=== PATIENT | female | born 1945 | race Caucasian/White ===

== ENCOUNTER → 2017-01-14 | Outpatient (CLI) | payer OTHER | LOC: CIMAGING 13:35 | PROVIDERS: ATTEND Physician Assistant Surgical | DX: Z09 Encounter for follow-up examination after completed treatment for conditions other than malignant neoplasm (principal); Z98.1 Arthrodesis status | CPT/HCPCS: 72100-PO ==

== ENCOUNTER → 2017-02-27 | Outpatient (CLI) | payer OTHER | LOC: FIMAGING 09:35 | PROVIDERS: ATTEND Family Medicine | DX: Z13.820 Encounter for screening for osteoporosis (principal); E03.9 Hypothyroidism, unspecified; Z82.62 Family history of osteoporosis; Z98.1 Arthrodesis status; Z85.42 Personal history of malignant neoplasm of other parts of uterus ==

== ENCOUNTER → 2017-06-22 | Outpatient (CLI) | payer OTHER | LOC: FIMAGING 13:58 | PROVIDERS: ATTEND Physician Assistant Surgical | DX: M43.26 Fusion of spine, lumbar region (principal) ==

== ENCOUNTER 2017-07-11 17:45 | Emergency (ER) | payer OTHER ==
[2017-07-11 18:14] VITALS: RESP 17; TEMP 98.2; O2SAT 94
--- NOTE | 2017-07-11 18:31 | EDPHY ---
H & P Smoking Status: Never smoked Time Seen by Provider: 07/11/17 18:29 HPI/ROS: Chief complaint. Abdominal pain HPI. 71-year-old female presents emergency department with right upper quadrant abdominal pain that radiates to her right shoulder. Began at 1:00 p.m. after drinking espitia for. She has had similar symptoms previously. She has not had nausea vomiting or diarrhea. She recently finished clindamycin antibiotic days ago because of facial infection. She has no fever, chest pain, shortness of breath. Pain is not worse with movement or eating. Apparently this has been going off and on for years ROS Constitutional. no fever/chills, no weakness Eyes. no problems with vision ENT. no sore throat, no nasal drainage Cardiovascular. no chest pain Respiratory. no shortness of breath, no cough Abdominal. Right upper quadrant abdominal pain without nausea vomiting or diarrhea . no problems urinating MS. no calf pain/swelling, no neck/back pain, no joint pain Skin. no rash Lymph. no swollen glands Neuro. no headache, no dizziness, no difficulty walking or with speech (Rich Delaney) Past Medical/Surgical History: Past medical history significant for chronic back pain, concussion, chronic headaches, appendectomy, hypertension, hyponatremia, anxiety, depression, hypothyroid, hysterectomy, vaginal cancer, Graves disease (Rich Delaney) Social History: , nonsmoker, no alcohol (Rich Delaney) Physical Exam: General Appearance: Alert well-developed female mild distress vital signs are stable Eyes: Pupils equal and round no pallor or injection. ENT, Mouth: Mucous membranes are moist. Respiratory: There are no retractions, lungs are clear to auscultation. Cardiovascular: Regular rate and rhythm. Gastrointestinal: Abdomen is soft with tenderness in the right upper quadrant. No masses. Normal bowel sounds Neurological: Awake and alert, sensory and motor exams grossly normal. Skin: Warm and dry, no rashes. Musculoskeletal: Neck is supple nontender. Extremities symmetrical, full range of motion. Psychiatric: Patient is oriented X 3, there is no agitation. (Rich Delaney) Constitutional: Initial Vital Signs Temperature (C) 36.8 C 07/11/17 18:10 Heart Rate 70 07/11/17 18:10 Respiratory Rate 17 07/11/17 18:10 Blood Pressure 152/107 H 09/28/17 18:10 O2 Sat (%) 94 07/11/17 18:10 O2 Delivery Mode Room Air Allergies/Adverse Reactions: Sulfa (Sulfonamide Antibiotics) Allergy (Severe, Verified 07/11/17 18:08) Other-Enter Comments adhesives topical Allergy (Uncoded 10/20/14 16:35) Home Medications: Medication Instructions Recorded Allopurinol [Allopurinol 300 MG 300 mg PO DAILY 10/20/14 (RX)] Budesonide [Budesonide EC] 9 mg PO DAILY PRN 10/20/14 ESTRADIOL ACETATE [FEMRING] 1 each VG Q90D 10/20/14 Levothyroxine [Synthroid 112 mcg 112 mcg PO DAILY06 10/20/14 (*)] Lidocaine 5% [Lidoderm 5% Patch 1 ea TD Q3D PRN 10/20/14 (*)] chlorproMAZINE HCL [Thorazine (*)] 25 mg PO HS PRN 10/20/14 Escitalopram Oxalate [Lexapro] 20 mg PO DAILY 06/20/16 Herbals/Supplements -Info Only 1 ea PO DAILY 06/20/16 LORazepam [Ativan (*)] 1 mg PO BID PRN 06/20/16 Lisinopril [Zestril 20 mg (*)] 20 mg PO BID 06/20/16 Metoprolol Tartrate [Lopressor 50 50 mg PO DAILY 06/20/16 mg (*)] oxyCODONE HCL/ACETAMINOPHEN 1 each PO QID PRN 06/20/16 [Percocet 10-325 mg Tablet] traZODone [traZODone 150MG (*)] 150 mg PO HS PRN 06/20/16 Niacin [Niacin 500 mg (*)] 500 mg PO DAILY 06/22/16 Acetaminophen [Tylenol 325mg (*)] 325 - 650 mg PO Q4 PRN #0 tab 06/24/16 Diazepam [Valium 5 MG (*)] 2 mg PO TID PRN #60 tab 06/24/16 Methocarbamol [Robaxin 750 mg (*)] 750 mg PO QID PRN #60 tab 06/24/16 oxyCODONE IR [Oxycodone Ir (*)] 5 - 10 mg PO Q4HRS PRN #60 tab 06/24/16 Medical Decision Making - Diagnostics Imaging Results: Upright abdomen one view shows no evidence of free air or air-fluid levels. Moderate constipation (Rich Delaney) Procedures: IV normal saline. Fentanyl for pain (Rich Delaney) ED Course/Re-evaluation: Re-evaluation at 8:30 a.m. patient is stable in appears well. Ultrasound is pending (Rich Delaney) 10:00 p.m.-this patient was signed over to me at shift change to check the ultrasound report. Ultrasound is normal, the plan is to discharge the patient home with outpatient follow-up. 10:10 p.m.-ultrasound right upper quadrant is normal, read by Dr. Jonnie Vigil. Results discussed with the patient. I was not otherwise involved in the care of this patient. Abdominal pain precautions given. (Danica Vail) Differential Diagnosis: I considered pancreatitis as well as cholecystitis and gallbladder disease. I considered hepatitis. Findings so far consistent with constipation. Patient has had these symptoms previously and so far workup is not shown cause for her pain (Rich Delaney) Care Turn Over: Dr. Vail at 2130 with ultrasound pending (Rich Delaney) - Data Points Laboratory Results: Laboratory Results 07/11/17 18:30 07/11/17 18:30 Medications Given: Discontinued Medications Fentanyl (Sublimaze) 100 mcg IVP EDNOW ONE Stop: 07/11/17 19:02 Last Admin: 07/11/17 19:16 Dose: 100 mcg Fentanyl (Sublimaze) 100 mcg IVP EDNOW ONE Stop: 07/11/17 21:12 Last Admin: 07/11/17 21:13 Dose: 100 mcg Sodium Chloride (Ns) 1,000 mls @ 0 mls/hr IV EDNOW ONE; Wide Open PRN Reason: Protocol Stop: 07/11/17 19:02 Last Admin: 07/11/17 19:16 Dose: 1,000 mls Departure - Departure Disposition: Home, Routine, Self-Care Clinical Impression: Abdominal pain Condition: Good Instructions: Abdominal Pain (ED) Additional Instructions: X-ray shows some constipation. Increased fluids including fruit and prune juice. May use ulysses Colace or laxatives from the grocery store. Return for worsening pain, fever, vomiting. Recheck tomorrow by your regular physician Referrals: Kilo Villagomez, DO [Primary Care Provider] - 1 day without fail
[2017-07-11] MEDS ORDERED: fentaNYL 100 MCG/2 ML INJ IVP ONE ×2 (19:01→21:11)
[2017-07-11] MEDS ORDERED: NS 1,000 ML IV ONE (19:01)
[2017-07-11 19:09] LABS: % IMMATURE GRANULYOCYTES 0.6 % (0.0-1.1); ABSOLUTE IMMATURE GRANULOCYTES 0.07 10^3/uL (0.00-0.10); ADD DIFF? NO; ADD MORPH? NO; ADD SCAN? NO; ATYPICAL LYMPHOCYTE FLAG 0 (0-99); FRAGMENT RBC FLAG 0 (0-99); HEMATOCRIT 43.4 % (38.0-47.0); HEMOGLOBIN 14.9 g/dL (12.6-16.3); LEFT SHIFT FLG 0 (0-99); LIPEMIA HEMOLYSIS FLAG 90 (0-99); MEAN CELL HEMOGLOBIN 33.9 pg (27.9-34.1); MEAN CELL HEMOGLOBIN CONCENTR. 34.3 g/dL (32.4-36.7); MEAN CELL VOLUME 98.6 fL (81.5-99.8); MEAN PLATELET VOLUME 11.3 fL (8.7-11.7); PLATELET CLUMPS FLAG 0 (0-99); PLATELET COUNT 201 10^3/uL (150-400); RED CELL DISTRIBUTION WIDTH 13.2 % (11.5-15.2)
[2017-07-11 19:21] LABS: ALANINE AMINOTRANSFERASE 32 IU/L (9-52); ALBUMIN 4.7 g/dL (3.5-5.0); ALKALINE PHOSPHATASE 67 IU/L (38-126); ANION GAP 12 mEq/L (8-16); ASPARTATE AMINOTRANSFERASE 33 IU/L (14-46); BILIRUBIN,TOTAL 0.8 mg/dL (0.1-1.4); BILIRUBIN-CONJUGATED 0.5 mg/dL (0.0-0.5); BILIRUBIN-UNCONJUGATED 0.3 mg/dL (0.0-1.1); CALCIUM 9.6 mg/dL (8.5-10.4); CARBON DIOXIDE 25 mEq/l (22-31); CHLORIDE 100 mEq/L (97-110); GLOMERULAR FILTRATION RATE 55; GLUCOSE 100 mg/dL (70-100); POTASSIUM 4.7 mEq/L (3.5-5.2); SODIUM 137 mEq/L (134-144); TOTAL PROTEIN 8.1 g/dL (6.3-8.2)
[2017-07-11] MEDS ORDERED: fentaNYL 100 MCG/2 ML INJ ONE (21:09)
[2017-07-11 21:59] VITALS: BP 182/92; PULSE 62
== END 2017-07-11 22:23 | disposition home or self-care (01) ==
DX: R10.11 Right upper quadrant pain (principal); E86.9 Volume depletion, unspecified; I10 Essential (primary) hypertension; Z85.44 Personal history of malignant neoplasm of other female genital organs; Z90.49 Acquired absence of other specified parts of digestive tract; Z90.710 Acquired absence of both cervix and uterus
CPT/HCPCS: 74000; 76705; 96374; 96376; 99285; J3010

== ENCOUNTER → 2017-08-20 | Outpatient (CLI) | payer OTHER | LOC: FIMAGING 11:18 | PROVIDERS: ATTEND Family Medicine | DX: Z12.31 Encounter for screening mammogram for malignant neoplasm of breast (principal) | CPT/HCPCS: G0202 ==

== ENCOUNTER → 2017-08-22 | Outpatient (CLI) | payer OTHER | LOC: CIMAGING 13:21 | PROVIDERS: ATTEND Family Medicine | DX: J32.2 Chronic ethmoidal sinusitis (principal) | CPT/HCPCS: 70486-PO ==

== ENCOUNTER 2018-06-26 18:38 | Inpatient (IN) | payer OTHER ==
--- NOTE | 2018-06-26 19:13 | EDPHY ---
H & P Stated Complaint: back pain urinary and fecal incontinence/had myelogram needs surgery Time Seen by Provider: 06/26/18 18:52 HPI/ROS: CHIEF COMPLAINT: Severe back pain, bowel and bladder incontinence HISTORY OF PRESENT ILLNESS: 72-year-old female presents with critical spinal stenosis. Multiple spinal surgeries in the past, including L1/L2 fusion. Ongoing severe pain in the low back for several months. On oxycontin and oxycodone. Several months ago she developed urinary incontinence and 3 weeks ago she developed bowel incontinence. Associated with bilateral lower extremity weakness for several weeks. CT myelogram today revealed cessation of contrast at T12-L1 junction, consistent with severe spinal stenosis. She was sent to the emergency department for admission for surgery. REVIEW OF SYSTEMS: complete 10 point ROS reviewed and is negative except at noted in the HPI - Personal History Current Tetanus Diphtheria and Acellular Pertussis (TDAP): Unsure Tetanus Vaccine Date: 2004 - Medical/Surgical History Hx Asthma: No Hx Chronic Respiratory Disease: No Hx Diabetes: No Hx Cardiac Disease: No Hx Renal Disease: No Hx Cirrhosis: No Hx Alcoholism: No Hx HIV/AIDS: No Hx Splenectomy or Spleen Trauma: No Other PMH: Chronic Back pain, concussion, Headaches, appy, HTN, hyponatremia, anxiety, depression, hypothyroid, total hysterectomy, vaginal cancer, Graves disease,. Pt states had a stroke but when she went to ER they did not diagnose her w a stroke and imaging did not show evidence of a stroke she says. C/o issues on Right side - Social History Smoking Status: Never smoked Alcohol Use: Sober Additional Social History: - Physical Exam Exam: General Appearance: Alert, pleasant Eyes: Pupils equal and round, no conjunctival pallor ENT, Mouth: Mucous membranes moist Neck: Normal inspection Respiratory: Lungs are clear to auscultation Cardiovascular: Regular rate and rhythm Gastrointestinal: Abdomen is soft and nontender Neurological: A&O, motor 5-/5 RLE hip flexion and foot dorsiflexion, sensation intact to light touch Skin: Warm and dry Extremities: Nontender, no pedal edema Psychiatric: Mood and affect normal Constitutional: Initial Vital Signs Temperature (C) 37 C 06/26/18 18:41 Heart Rate 64 06/26/18 18:41 Respiratory Rate 17 06/26/18 18:41 Blood Pressure 117/80 06/26/18 18:41 O2 Sat (%) 96 06/26/18 18:41 O2 Delivery Mode Room Air Allergies/Adverse Reactions: Sulfa (Sulfonamide Antibiotics) Allergy (Severe, Verified 06/26/18 18:40) Other-Enter Comments adhesives topical Allergy (Uncoded 10/20/14 16:35) Home Medications: Medication Instructions Recorded Allopurinol [Allopurinol 300 MG 300 mg PO DAILY 10/20/14 (RX)] Budesonide [Budesonide EC] 9 mg PO DAILY PRN 10/20/14 ESTRADIOL ACETATE [FEMRING] 1 each VG Q90D 10/20/14 Levothyroxine [Synthroid 112 mcg 112 mcg PO DAILY06 10/20/14 (*)] chlorproMAZINE HCL [Thorazine (*)] 25 mg PO HS PRN 10/20/14 Escitalopram Oxalate [Lexapro] 20 mg PO DAILY 06/20/16 Herbals/Supplements -Info Only 1 ea PO DAILY 06/20/16 LORazepam [Ativan (*)] 1 mg PO BID@,17 06/20/16 Lisinopril [Zestril 20 mg (*)] 20 mg PO BID@05,17 06/20/16 Escitalopram Oxalate [Lexapro] 10 mg PO HS 06/26/18 Fluticasone Nasal [Flonase Nasal 2 sprays NASAL DAILY 06/26/18 [place]] Melatonin 10 mg PO HS 06/26/18 Methocarbamol [Robaxin 500 mg (*)] 500 mg PO BID@,17 PRN 06/26/18 Metoprolol Succinate 25 mg PO DAILY@17 06/26/18 Metoprolol Succinate 50 mg PO DAILY 06/26/18 Minoxidil [Minoxidil 2.5 mg (*)] 2.5 mg PO BID@05,17 06/26/18 oxyCODONE HCL [Oxycontin] 20 mg PO BID@05,17 06/26/18 tiZANidine HCL [Zanaflex] 2 mg PO QID 06/26/18 traZODone [traZODone 150MG (*)] 75 mg PO HS PRN 06/26/18 Acetaminophen [Tylenol ES 500 mg 1,000 mg PO Q8H tab 06/29/18 (*)] Diazepam [Valium] 5 mg IVP Q6HRS PRN syr 06/29/18 Polyethylene Glycol 3350 [Miralax 17 gm PO TID pkt 06/29/18 17 gm (*)] Sennosides/Docusate Sodium 1 - 2 tab PO BID tab 06/29/18 [Senokot-S] oxyCODONE IR [Oxycodone Ir (*)] 10 mg PO Q4HRS PRN tab 06/29/18 Medical Decision Making ED Course/Re-evaluation: This patient presents with critical spinal stenosis, diagnosed on myelogram today. Patient declines pain medications. Dr. Samson was consulted and will admit the patient. Plan for surgical repair 10:00am tomorrow. Stable throughout her emergency department stay. Differential Diagnosis: Differential diagnosis for back pain includes muscular pain, herniated disc, epidural abscess, discitis, spine fracture, intra-abdominal causes and urinary tract infection. - Data Points Laboratory Results: Laboratory Results 06/26/18 19:02 06/26/18 19:02 Medications Given: Discontinued Medications Acetaminophen (Tylenol) 1,000 mg PO ONCALL ONE Stop: 06/27/18 06:01 Last Admin: 06/27/18 17:47 Dose: Not Given Acetaminophen (Tylenol) 1,000 mg PO Q8H HANG Stop: 12/24/18 15:59 Last Admin: 06/29/18 09:35 Dose: 1,000 mg Allopurinol (Allopurinol) 300 mg PO DAILY HANG Stop: 12/24/18 08:59 Last Admin: 06/29/18 09:35 Dose: 300 mg Bacitracin (Bacitracin Syringe) Confirm Administered Dose 150,000 units IRR .STK -MED ONE Stop: 06/27/18 11:45 Last Admin: 06/27/18 12:30 Dose: 150,000 units Bupivacaine HCl (Sensorcaine 0.25% Sdv) Confirm Administered Dose 60 ml .ROUTE .STK-MED ONE Stop: 06/27/18 11:44 Last Admin: 06/27/18 12:30 Dose: 60 ml Chlorhexidine Gluconate (Hibiclens) Confirm Administered Dose 1 btl TP .STK-MED ONE Stop: 06/27/18 11:44 Last Admin: 06/27/18 12:30 Dose: 20 ml Chlorpromazine HCl (Thorazine) 50 mg PO HS HANG Stop: 12/23/18 22:34 Last Admin: 06/28/18 20:24 Dose: 50 mg Diazepam (Valium) 2.5 - 5 mg IVP Q5M PRN PRN Reason: PACU, Muscle Spasms Stop: 06/27/18 16:30 Last Admin: 06/27/18 16:24 Dose: 5 mg Enoxaparin Sodium (Lovenox) 40 mg SC DAILY [facility] Stop: 12/25/18 08:59 Last Admin: 06/29/18 09:36 Dose: 40 mg Epinephrine HCl (Epinephrine) Confirm Administered Dose 1 mg .ROUTE .STK-MED [facility] Stop: 06/27/18 11:44 Last Admin: 06/27/18 12:30 Dose: 1 mg Escitalopram Oxalate (Lexapro) 10 mg PO HS [facility] Stop: 12/24/18 20:59 Last Admin: 06/28/18 20:23 Dose: 10 mg Escitalopram Oxalate (Lexapro) 20 mg PO DAILY [facility] Stop: 12/24/18 08:59 Last Admin: 06/29/18 09:35 Dose: 20 mg Famotidine (Pepcid) 20 mg PO BID [facility] Stop: 12/24/18 20:59 Last Admin: 06/29/18 09:36 Dose: 20 mg Fentanyl (Sublimaze) 25 - 100 mcg IVP Q5M PRN PRN Reason: PACU, IMMEDIATE Pain control Stop: 06/27/18 16:30 Last Admin: 06/27/18 16:14 Dose: 100 mcg Fluticasone Propionate (Flonase Nasal [place]) 2 sprays [place] DAILY [facility] Stop: 12/24/18 08:59 Last Admin: 06/29/18 11:30 Dose: Not Given Gabapentin (Neurontin) 900 mg PO ONCALL ONE Stop: 06/27/18 06:01 Last Admin: 06/27/18 09:00 Dose: Not Given Gabapentin (Neurontin) 900 mg PO Q8HRS [facility] Stop: 12/24/18 21:59 Last Admin: 06/29/18 05:25 Dose: Not Given Cefazolin Sodium/Dextrose (Ancef 2 Gm) 100 mls @ 200 mls/hr IV ONCALL ONE PRN Reason: Protocol Stop: 06/27/18 06:29 Last Admin: 06/27/18 13:00 Dose: 100 mls Fentanyl 50 mcg/ Syringe 1 mls @ 0 mls/hr IT ONCALL ONE PRN Reason: As Directed Stop: 06/27/18 06:01 Last Admin: 06/27/18 15:33 Dose: 1 mls Morphine Sulfate 0.2 mg/ (Syringe) 0.4 mls @ 0 mls/hr IT ONCALL ONE PRN Reason: As Directed Stop: 06/27/18 06:01 Last Admin: 06/27/18 15:33 Dose: 0.4 mls Tranexamic Acid 1,000 mg/ (Sodium Chloride) 110 mls @ 660 mls/hr IV ONCALL ONE Stop: 06/27/18 06:09 Last Admin: 06/27/18 12:57 Dose: 110 mls Sodium Chloride (Ns) 1,000 mls @ 100 mls/hr IV CONT HANG Stop: 12/23/18 22:34 Last Admin: 06/27/18 17:26 Dose: 1,000 mls Lactated Ringer's (Lr) 1,000 mls @ 0 mls/hr IV ONCE ONE PRN Reason: As Directed Stop: 06/27/18 10:19 Last Admin: 06/27/18 10:32 Dose: 1,000 mls Cefazolin Sodium/Dextrose (Ancef 2 Gm) 100 mls @ 200 mls/hr IV Q8H [facility] Stop: 06/28/18 05:29 Last Admin: 06/28/18 04:37 Dose: 100 mls Levothyroxine Sodium (Synthroid) 112 mcg PO DAILY06 [facility] Stop: 12/25/18 05:59 Last Admin: 06/29/18 05:06 Dose: 112 mcg Lisinopril (Zestril) 20 mg PO BID@17 [facility] Stop: 12/24/18 16:59 Last Admin: 06/29/18 05:06 Dose: 20 mg Lorazepam (Ativan) 1 mg PO BID@17 [facility] Stop: 12/24/18 16:59 Last Admin: 06/29/18 05:07 Dose: 1 mg Methocarbamol (Robaxin) 500 mg PO BID@,17 PRN PRN Reason: Spasms, Use 2nd Stop: 12/24/18 16:59 Last Admin: 06/28/18 14:29 Dose: 500 mg Metoprolol Succinate (Toprol Xl) 25 mg PO DAILY@17 [facility] Stop: 12/24/18 16:59 Last Admin: 06/28/18 18:34 Dose: 25 mg Metoprolol Succinate (Toprol Xl) 50 mg PO DAILY [facility] Stop: 12/24/18 08:59 Last Admin: 06/29/18 09:36 Dose: 50 mg Midazolam HCl (Versed) 2 mg IVP ONCALL ONE Stop: 06/27/18 11:31 Last Admin: 06/27/18 12:09 Dose: 2 mg Minoxidil (Minoxidil) 2.5 mg PO BID@ [facility] Stop: 12/24/18 16:59 Last Admin: 06/29/18 05:06 Dose: 2.5 mg Miscellaneous Medication (Melatonin 5mg) 10 mg PO HS [facility] Stop: 12/23/18 23:29 Last Admin: 06/28/18 20:22 Dose: 2 tab Morphine Sulfate (Morphine) 2 mg IVP Q1HR PRN PRN Reason: Pain, Severe Unable to Take PO Stop: 07/06/18 19:25 Last Admin: 06/27/18 21:16 Dose: 2 mg Oxycodone HCl (Oxycodone Ir) 10 mg PO Q4HRS PRN PRN Reason: Pain, Severe Able to Take PO Stop: 07/06/18 19:40 Last Admin: 06/29/18 09:34 Dose: 10 mg Oxycodone HCl (Oxycontin) 20 mg PO BID@ [facility] Stop: 07/07/18 16:59 Last Admin: 06/29/18 05:06 Dose: 20 mg Polyethylene Glycol (Miralax) 17 gm PO TID [facility] Stop: 12/24/18 21:59 Last Admin: 06/29/18 09:37 Dose: Not Given Senna/Docusate Sodium (Senokot-S) 1 - 2 tab PO BID HANG PRN Reason: Protocol Stop: 12/24/18 20:59 Last Admin: 06/29/18 09:37 Dose: Not Given Thrombin (Thrombin-Jmi) Confirm Administered Dose 20,000 unit TP .STK-MED ONE Stop: 06/27/18 11:44 Last Admin: 06/27/18 12:30 Dose: 20,000 unit Tizanidine HCl (Zanaflex) 2 mg PO QID [facility] Stop: 12/24/18 11:59 Last Admin: 06/29/18 11:55 Dose: 2 mg Trazodone HCl (Trazodone) 75 mg PO HS HANG Stop: 12/23/18 22:34 Last Admin: 06/26/18 23:24 Dose: 75 mg Trazodone HCl (Trazodone) 75 mg PO HS PRN PRN Reason: Sleep/Insomnia Stop: 12/24/18 07:13 Last Admin: 06/28/18 20:23 Dose: 75 mg Departure - Departure Disposition: [facility] Clinical Impression: Spinal stenosis Qualifiers: Spinal region: thoracolumbar Qualified Code(s): M48.05 - Spinal stenosis, thoracolumbar region Condition: Good
[2018-06-26 19:25] LABS: INR 0.97 (0.83-1.16); PROTIME(PATIENT) 13.1 SEC (12.0-15.0)
[2018-06-26] MEDS ORDERED: DIAZEPAM 5 MG/ML 1 ML SYR IVP PRN (19:41)
[2018-06-26] MEDS ORDERED: ONDANSETRON 4 MG/2 ML VIAL IVP PRN (19:42)
[2018-06-26] MEDS ORDERED: diphenhydrAMINE 25 MG CAP PO PRN (19:42)
[2018-06-26 20:13] LABS: PLATELET COUNT 183 10^3/uL (150-400)
[2018-06-26] MEDS ORDERED: MELATONIN 3 MG TAB PO SCH (22:35)
[2018-06-26] MEDS ORDERED: traZODone 50 MG TAB PO SCH (22:35)
[2018-06-26] MEDS: chlorproMAZINE HCL 25 MG TAB PO SCH (23:20)
[2018-06-27] MEDS: NS 1,000 ML IV SCH ×2 (00:08→17:26)
[2018-06-27] MEDS ORDERED: morphINE PF 0.2 MG in SYRINGE INTRATHECAL 1 SYR IT ONE (06:00)
[2018-06-27] MEDS ORDERED: GABAPENTIN 300 MG CAP PO ONE (06:00)
[2018-06-27] MEDS ORDERED: ceFAZolin 2 GM/DEXTROSE 100 ML IV ONE (06:00)
[2018-06-27] MEDS ORDERED: TRANEXAMIC ACID 1,000 MG in NS 100 ML IV ONE (06:00)
[2018-06-27] MEDS ORDERED: ACETAMINOPHEN 500 MG TAB PO ONE (06:00)
[2018-06-27] MEDS ORDERED: fentaNYL 50 MCG in SYRINGE INTRATHECAL 1 SYR IT ONE (06:00)
[2018-06-27] MEDS ORDERED: chlorproMAZINE HCL 25 MG TAB PO PRN (07:14)
[2018-06-27] MEDS ORDERED: BUDESONIDE 3 MG EC CAP PO PRN (07:14)
[2018-06-27] MEDS ORDERED: NON-FORMULARY NEW DRUG (Oxycodone Hcl/Acetaminophen [Percocet 10-325 Mg Tablet] 1 EACH) PO PRN (07:14)
[2018-06-27] MEDS ORDERED: oxyCODONE IR 5 MG TAB PO PRN ×2 (07:30→15:30)
[2018-06-27] MEDS ORDERED: OXYCODONE/APAP 5/325 TAB PO PRN (07:30)
--- NOTE | 2018-06-27 07:47 | SOAPPROG ---
SOAP Progress Note Assessment/Plan: Assessment: 72 yo with L1-S1 fusion over multiple surgeries by Dr. Hardy and thoracic Spinal cord stimulator placed by Dr. Irene several years ago who presents with 2 days of bowel/bladder incontinence and worsening back pain. CT myelogram of T/L spine shows critical spinal stenosis at T12/L1 above her fusion. See dictated H/P for further details Plan: NPO TO OR this AM for L1/2 hardware removal and T12/L1 TLIF with reinstrumentation with Dr. Hardy Hospitalist consult 06/27/18 07:44 06/27/18 07:47 Subjective: awake, alert, lying in bed. Reports ongoing bowel/bladder incontinence Legs feel OK but she feels unsteady on her feet. Denies radicular leg pain or focal leg weakness Complains of back pain. Objective: Vital Signs Temp Pulse Resp BP Pulse Ox 36.4 C 72 16 107/66 92 06/27/18 04:00 06/27/18 04:00 06/27/18 04:00 06/27/18 04:00 06/27/18 04:00 Laboratory Results 06/26/18 19:56 PT 13.1 SEC (12.0-15.0) 06/26/18 19:02 INR 0.97 (0.83-1.16) 06/26/18 19:02 Neuro; 5/5 bilateral LE, sens +LT Incontinent of bowel and bladder ambulatory ICD10 Worksheet Patient Problems: Problems Problem Status Onset Spinal stenosis Acute S/P lumbar spinal fusion Acute
--- NOTE | 2018-06-27 08:26 | GHP ---
DATE OF ADMISSION: 06/26/2018 CHIEF COMPLAINT: Loss of bowel and bladder control, and back pain. HISTORY OF PRESENT ILLNESS: The patient is a 72-year-old female, known to our practice, who has unde rgone multiple lumbar surgeries including an L1 to S1 fusion over multiple surgical procedures. She also has an indwelling thoracic spinal cord stimulator, which was placed by Dr. Irene. The previous fusions were performed by Dr. Hardy. The patient is 2 years out from undergoing an L2-3 angelina dware removal with an L1-2 TLIF on 06/22/2016. She states that over the past 2 years she has had gra dually worsening urinary leakage and recently was having more thoracic back pain since November. The patient was ordered to undergo a thoracolumbar CT myelogram for further evaluation of her so urce of her pain and symptoms. She cannot undergo an MRI due to the indwelling thoracic spinal cord stimulator. Yesterday, the patient completed her myelogram and I was contacted by Dr. Ann Marie Restrepo from [facility], who reported the patient has severe/critical spinal stenosis at the T12-L1 level, above her current fusion. The patient was immediately contacted at home and instructed to proceed to the [facility] department due to these findings. The patient stated on the phone that 2 days ago she lost con trol of both bowel and bladder but felt that it was worsening over the past but it had been progressi vely worsening prior to heather loss of control. She is not reporting any leg pain but does feel like her legs are generally unsteady and do not hold her up confidently and she walks slowly. She does villalobos ve chronic right-sided hip and leg weakness from a prior hip surgery. She also reports pain in her b ilateral arms and shoulders as well as some neck discomfort. ALLERGIES: Sulfa and topical adhesives. CURRENT MEDICATIONS: 1. Lisinopril 40 mg daily. 2. Levothyroxine 112 mcg daily. 3. Escitalopram 40 mg daily. 4. Chlorpromazine 50 mg q.h.s. 5. Lorazepam 1-2 mg as needed for anxiety. 6. Femring 0.1 mg per day. 7. Minoxidil 2.5 mg 2 tabs twice daily. 8. Metoprolol 50 mg tablet, 1.5 tablets daily. 9. Allopurinol 300 mg daily. 10. Niacinamide 500 mg daily. 11. Percocet 10/325 three tablets daily p.r.n. pain. 12. Hydrocodone 40 mg 2 tablets daily. 13. Methocarbamol 500 mg q.6 hours p.r.n. 14. Fluticasone 50 mcg 2 sprays nasal daily. PHYSICAL EXAM: GENERAL: Pleasant, healthy-appearing 72-year-old female in no apparent distress. HE AD, EYES, EARS, NOSE, THROAT: Within normal limits. EXTREMITIES: Within normal limits, with normal sensation in her chest, abdomen and legs bilaterally. She has 5/5 strength in all muscle groups of bilateral lower extremities to individual muscle strength testing. She has 1+/4 deep tendon reflexes in the bilateral upper and lower extremities in biceps, brachioradialis and patellar tendons with no Ajit's and no clonus. Strength is equal and symmetric in the bilateral upper extremities in all muscle groups with normal s ensation in the arms. The patient is incontinent of bowel and bladder and states she has no sensation of bladder function o r bowel movements. PAST MEDICAL HISTORY: Chronic back pain, concussion, headaches, hypertension, hyponatremia, anxiety, depression, hypothyroid, Graves disease, vaginal cancer, collagenous colitis with chronic loose stoo ls for 6 years. PAST SURGICAL HISTORY: Appendectomy, hysterectomy, L1 to S1 fusion. DATA REVIEW: Lab results: White blood cell count 9.06, hemoglobin 13.2, hematocrit 38.1, platelets are 183,000. PT is 13.1, INR 0.97, PTT 22.2. Sodium is 138, potassium 3.9, chloride 102, carbon demario xide 26, BUN 26, creatinine 0.9, glucose 105, calcium 9.4. Estimated GFR is greater than 60. CT myelogram performed on 06/26/2018, demonstrates critical spinal stenosis at the T12-L1 level just above the fused level, caused by a combination of posterior ligamentum flavum hypertrophy, epidural s car, and ventral broad-based disk bulge and osteophyte formation. The spinal nerve roots below this level are curvilinear, consistent with critical spinal stenosis. This level correlates to where the conus terminates. Right posterolateral soft tissue density medial to the facet joint in the epidural space at T11-12 with specks of air is noted on the radiology report. This may represent facet ligam entum hypertrophy, with air induced from the facet joint or postoperative epidural scar. This is cau sing, at this point, mild posterior spinal canal stenosis. IMPRESSION: This is a 72-year-old female with L1 to S1 fusion performed by Dr. Hardy over mu ltiple spinal surgeries, and a thoracic spinal cord stimulator placed by Dr. Irene. She reports pro gressively worsening severe back pain and now presents with heather bowel and bladder incontinence; how ever, the patient states that she has had urinary leakage over the past 2 years and has chronic loose stools for 6 years. In association with her heather bowel and bladder incontinence, she has now also generalized weakness in bilateral lower extremities without radicular leg pain. PLAN: All the above issues were discussed with the patient in detail with her present and di scussed with Dr. Hardy. At this time, the patient is a candidate for hardware removal at L1- 2, followed by T12-L1 transforaminal lumbar interbody fusion with re-instrumentation today. Risks an d benefits of the surgical procedure were discussed with the patient and she did complete consent for ms. She does understand that the purpose of surgery is to prevent further progression of symptoms an d that she may not regain full bowel or bladder control. The patient conveyed understanding of all t his information and agrees to proceed with surgery. /[id number]/MODL
[2018-06-27] MEDS: ESCITALOPRAM OXALATE 10 MG TAB PO SCH ×2 (09:00→20:17)
[2018-06-27] MEDS: ALLOPURINOL 300 MG TAB PO SCH (09:00)
[2018-06-27] MEDS: METOPROLOL SUCCINATE XR 50 MG TAB PO SCH ×2 (09:00→18:04)
[2018-06-27] MEDS: FLUTICASONE NASAL 120 SPRAYS/16 GM MDI EACHNARE SCH (09:00)
--- NOTE | 2018-06-27 09:30 | ASMTCMCOM ---
CM Note CM Note Notes: CM reviewed chart for D/C planning. Pt is a 72 y/o female who has a hx of multiple lumbar surgeries. Over the past 2 years she has had increased urinary leakage. 2 days ago she lost control of both bowel and bladder. Legs are generally unsteady and do not hold her up confidently. Walks slowly. CT myelogram demonstrates critical spinal stenosis at the T12-L1 level. Surgery has been agreed to. Purpose is to prevent progression. She may not gain full control of bladder/bowel. OT ordered. is Tae, . CM will follow. D/C Plan: TBD Date Signed: 06/27/2018 09:29 AM Electronically Signed By:Yvonne Fierro
[2018-06-27] MEDS ORDERED: LR 1,000 ML IV ONE (10:18)
[2018-06-27] MEDS ORDERED: MIDAZOLAM 2 MG/2 ML VIAL IVP ONE (11:30)
--- NOTE | 2018-06-27 11:30 | PDANEPAE ---
ANE History of Present Illness t10-l1 tlif ANE Past Medical History - Cardiovascular History Hx Hypertension: Yes Hx Arrhythmias: No Hx Chest Pain: No Hx Coronary Artery / Peripheral Vascular Disease: No Hx CHF / Valvular Disease: No Hx Palpitations: No Cardiovascular History Comment: well controlled BP - Pulmonary History Hx COPD: No Hx Asthma/Reactive Airway Disease: No Hx Recent Upper Respiratory Infection: No Hx Oxygen in Use at Home: No Hx Sleep Apnea: No Sleep Apnea Screening Result - Last Documented: Negative - Neurologic History Hx Cerebrovascular Accident: No Hx Seizures: No Hx Dementia: No Neurologic History Comment: leg weakness. - Endocrine History Hx Diabetes: No Endocrine History Comment: Graves disease, hypothyroid. - Renal History Hx Renal Disorders: No Renal History Comment: 04/26-bladder inf. - Liver History Hx Hepatic Disorders: Yes Hepatic History Comment: spot on liver. 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 - Congenital Disorder History Hx Congenital Disorders: No - GI History Hx Gastrointestinal Disorders: Yes Gastrointestinal History Comment: Collagenous colitis-meds. - Other Health History Other Health History: Graves disease with eye involvement. Skin rashes with adhesives. Osteoarthritis. 3 missing teeth with dental implants. Chipped front teeth. Bruise easily. - Chronic Pain History Chronic Pain: Yes - Surgical History Prior Surgeries: 2008-api. 2008-lumbar lami. 2008-lumbar cyst drainage. 2009- lumbar fusion. 2012-L5/S1 fusion. 2012-spinal stimulater. 2012-R hip surg. 2013- R carpal tunnel repair. 1988-total hyst. Bilateral cataracts.L2/L3 fusion. ANE Review of Systems Review of systems is: negative Review of Systems: - Exercise capacity Exercise capacity: <4 METS ANE Patient History - Allergies Allergies/Adverse Reactions: Sulfa (Sulfonamide Antibiotics) Allergy (Severe, Verified 06/26/18 18:40) Other-Enter Comments adhesives topical Allergy (Uncoded 10/20/14 16:35) - Home Medications Home medications: home medication list seen and reviewed Home Medications: Allopurinol [Allopurinol 300 MG (RX)] 300 mg PO DAILY 10/20/14 [Last Taken 06/26] Budesonide [Budesonide EC] 9 mg PO DAILY PRN 10/20/14 [Last Taken 06/25/18] ESTRADIOL ACETATE [FEMRING] 1 each VG Q90D 10/20/14 [Last Taken 05/06/18] Levothyroxine [Synthroid 112 mcg (*)] 112 mcg PO DAILY06 10/20/14 [Last Taken ] chlorproMAZINE HCL [Thorazine (*)] 25 mg PO HS PRN 10/20/14 [Last Taken 06/25/18 ] Escitalopram Oxalate [Lexapro] 20 mg PO DAILY 06/20/16 [Last Taken 06/22/16 05: 00] Herbals/Supplements -Info Only 1 ea PO DAILY 06/20/16 [Last Taken 06/22/16 05:00 ] LORazepam [Ativan (*)] 1 mg PO BID@,06/20/16 [Last Taken 06/26/18 17:00] Lisinopril [Zestril 20 mg (*)] 20 mg PO BID@,06/20/16 [Last Taken 06/26/18 17:00] oxyCODONE HCL/ACETAMINOPHEN [Percocet 10-325 mg Tablet] 1 each PO TID PRN [Last Taken 06/22/16 05:00] Escitalopram Oxalate [Lexapro] 10 mg PO HS 06/26/18 [Last Taken 06/25/18] Fluticasone Nasal [Flonase Nasal [place] (RX)] 2 sprays NASAL DAILY 06/26/18 [ Last Taken 06/26/18] Melatonin 10 mg PO HS 06/26/18 [Last Taken 06/25/18] Methocarbamol [Robaxin 500 mg (*)] 500 mg PO BID@, PRN 06/26/18 [Last Taken Unknown] Metoprolol Succinate 25 mg PO DAILY@06/26/18 [Last Taken 06/26/18 17:00] Metoprolol Succinate 50 mg PO DAILY 06/26/18 [Last Taken 06/26/18] Minoxidil [Minoxidil 2.5 mg (*)] 2.5 mg PO BID@,06/26/18 [Last Taken 17:00] oxyCODONE HCL [Oxycontin] 20 mg PO BID@,06/26/18 [Last Taken 06/26/18 17:00 ] tiZANidine HCL [Zanaflex] 2 mg PO QID 06/26/18 [Last Taken 06/26/18 17:00] traZODone [traZODone 150MG (*)] 75 mg PO HS PRN 06/26/18 [Last Taken 06/25/18] - NPO status NPO Since - Liquids (Date): 06/26/18 NPO Since - Liquids (Time): 23:59 NPO Since - Solids (Date): 06/26/18 NPO Since - Solids (Time): 23:59 - Anes Hx Anes Hx: no prior problems - Smoking Hx Smoking Status: Never smoked - Alcohol Use Alcohol Use: Sober - Family Anes Hx Family Hx Anesthesia Complications: no ANE Labs/Vital Signs - Labs Result Diagrams: 06/26/18 19:56 06/26/18 19:02 - Vital Signs Blood Pressure: 154/86 Heart Rate: 60 Respiratory Rate: 16 O2 Sat (%): 92 Height: 165.1 cm Weight: 72.575 kg ANE Physical Exam - Airway Neck exam: FROM Mallampati Score: Class 3 - Pulmonary Pulmonary: no respiratory distress - Cardiovascular Cardiovascular: regular rate and rhythym - ASA Status ASA Status: III ANE Anesthesia Plan Anesthesia Plan: general endotracheal anesthesia Lines/Monitors: arterial line Specialized Airway: video laryngoscope
[2018-06-27] MEDS ORDERED: REMIFENTANIL HCL 1 MG VIAL ONE (11:34)
[2018-06-27] MEDS ORDERED: fentaNYL 100 MCG/2 ML INJ ONE ×2 (11:34→16:12)
[2018-06-27] MEDS ORDERED: PROPOFOL/EMULSION 500 MG/50 ML BOTTLE IV ONE ×2 (11:34→14:06)
[2018-06-27] MEDS ORDERED: ONDANSETRON 4 MG/2 ML VIAL ONE (11:39)
[2018-06-27] MEDS ORDERED: ROCURONIUM 50 MG/5 ML VIAL ONE (11:39)
[2018-06-27] MEDS ORDERED: DEXAMETHASONE 4 MG/ML VIAL ONE (11:39)
[2018-06-27] MEDS ORDERED: LIDOCAINE 2% 2 ML INJ ONE ×2 (11:39)
[2018-06-27] MEDS ORDERED: BUPIVACAINE 0.25% 30 ML SDV ONE (11:43)
[2018-06-27] MEDS ORDERED: THROMBIN (BOVINE) 20,000 UNIT VIAL TP ONE (11:43)
[2018-06-27] MEDS ORDERED: EPINEPHrine 1 MG/ML INJ ONE (11:43)
[2018-06-27] MEDS ORDERED: CHLORHEXIDINE GLUC HIBICLENS 118 ML BTL TP ONE (11:43)
[2018-06-27] MEDS ORDERED: BACITRACIN 50,000 UNITS/10 ML SYR IRR ONE (11:44)
--- NOTE | 2018-06-27 12:32 | PDMN ---
Medical Necessity Medical necessity: Pt meets inpt criteria per MD order and [facility] [place] S-820, Lumbar Fusion, 3 days. 72 y/o w/hx mult lumbar surgeries presents w/, progressive severe back pain and bowel and bladder incontinence as well as gen weakness to bilat lower extremeities. Neurosurg consult; pt will go to OR for hardware removal at L1-2, followed by T12-L1 transforaminal lumbar interbody fusion w/re- instrumentation. Anticipate>2MN for surgical intervention for above condition and post-op care.
[2018-06-27] MEDS ORDERED: CEFAZOLIN 2 GM/DEXTROSE/100 ML BAG IV ONE (12:34)
[2018-06-27] MEDS ORDERED: hydrALAZINE 20 MG/ML VIAL ONE (13:01)
[2018-06-27] MEDS ORDERED: PHENYLEPHRINE 10 MG/ML SDV ONE (13:48)
[2018-06-27] MEDS ORDERED: HYDROmorphONE/DILAUDID 2 MG/ML INJ ONE (14:22)
--- NOTE | 2018-06-27 14:28 | POSTANESTH ---
Post Anesthetic Evaluation Cardiovascular Status: Normal, Stable Respiratory Status: Normal, Stable Level of Consciousness/Mental Status: Can Participate in Eval, Alert and Oriented Pain Control: Adequate, Prn Tx Ordered Nausea/Vomiting Control: Adequate, Prn Tx Ordered Complications Possibly Related to Anesthesia: None Noted
[2018-06-27] MEDS ORDERED: LABETALOL HCL 5 MG/ML 20 ML MDV IVP PRN (15:30)
[2018-06-27] MEDS ORDERED: HYDROCODONE/APAP 5/325 TAB PO PRN (15:30)
[2018-06-27] MEDS ORDERED: LR 500 ML IV PRN (15:30)
[2018-06-27] MEDS ORDERED: PROMETHAZINE HCL 25 MG/ML INJ IVP PRN (15:30)
[2018-06-27] MEDS ORDERED: fentaNYL 100 MCG/2 ML INJ IVP PRN (15:30)
[2018-06-27] MEDS ORDERED: ACETAMINOPHEN 500 MG TAB PO PRN (15:30)
[2018-06-27] MEDS ORDERED: NALOXONE HCL 0.4 MG/ML INJ IVP PRN (15:30)
[2018-06-27] MEDS ORDERED: HYDROmorphONE/DILAUDID 1 MG/ML INJ IVP PRN (15:30)
[2018-06-27] MEDS ORDERED: ONDANSETRON 4 MG/2 ML VIAL IVP PRN (15:30)
[2018-06-27] MEDS ORDERED: DIAZEPAM 5 MG/ML 1 ML SYR IVP PRN (15:30)
[2018-06-27] MEDS ORDERED: PHENYLEPHRINE HCL 100 MCG/ML SYR IVP PRN (15:30)
[2018-06-27] MEDS ORDERED: ALBUTEROL 3 ML DEYVIAL IH PRN (15:30)
[2018-06-27] MEDS ORDERED: DIAZEPAM 5 MG/ML 1 ML SYR ONE (16:22)
--- NOTE | 2018-06-27 16:32 | POSTOPPROG ---
Post Op Note Date of Operation: 06/27/18 Surgeon: Garo Hardy Proof Inspector: Luis Lawson PAC Anesthesiologist: Benny RIVERA Anesthesia: GET(General Endotracheal) Pre-op Diagnosis: T12/L1 critical stenosis Post-op Diagnosis: Same Indication: Loss of bowel/bladder control. severe back pain Procedure: Hdwr removal L1/2, T12/L1 hemilaminectomy/TLIF. [id number] Findings: stenosis at T12/L1 Inf/Abcess present in the surg proc area at time of surgery?: No EBL: 100-500 Complications: none Drains: Brendon Reina (to bulb suction) Specimen(s): none
[2018-06-27] MEDS ORDERED: LACTULOSE 20 GM/30 ML UDCUP PO PRN (16:34)
[2018-06-27] MEDS ORDERED: ONDANSETRON DISINTEGRATING 4 MG TAB PO PRN (16:34)
[2018-06-27] MEDS ORDERED: diphenhydrAMINE 25 MG CAP PO PRN (16:34)
[2018-06-27] MEDS ORDERED: BISACODYL 10 MG SUPP PR PRN (16:34)
[2018-06-27] MEDS ORDERED: MAGNESIUM HYDROXIDE 30 ML UDCUP PO PRN (16:34)
--- NOTE | 2018-06-27 16:34 | SOAPPROG ---
SOAP Progress Note Assessment/Plan: Assessment: Post op CHECK Doing well after T11- L1 fusion Plan: CPM in PACU GT to bulb suction transfer to floor per protocol Subjective: S: Awake, alert. complains of back pain Objective: Vital Signs Temp Pulse Resp BP Pulse Ox 36 C 60 13 122/63 H 97 06/27/18 16:04 06/27/18 11:30 06/27/18 16:15 06/27/18 16:15 06/27/18 16:26 Laboratory Results 06/26/18 19:56 06/26/18 06/27/18 06/28/18 05:59 05:59 05:59 Intake Total 1725 Output Total 650 Balance 1075 PT 13.1 SEC (12.0-15.0) 06/26/18 19:02 INR 0.97 (0.83-1.16) 06/26/18 19:02 Neuro: awake, alert, speech clear LONGORIA to command sens +LT x 4 HR:85 BP:114/69 O2:96% NC ICD10 Worksheet Patient Problems: Problems Problem Status Onset Spinal stenosis Acute S/P lumbar spinal fusion Acute
[2018-06-27] MEDS ORDERED: oxyCODONE IR 5 MG TAB ONE (16:40)
[2018-06-27] MEDS: oxyCODONE IR 5 MG TAB PO PRN ×3 (16:41→23:56)
[2018-06-27] MEDS ORDERED: METHOCARBAMOL 500 MG TAB PO PRN (17:00)
[2018-06-27] MEDS: ACETAMINOPHEN 500 MG TAB PO SCH ×2 (17:47→23:56)
[2018-06-27] MEDS: LISINOPRIL 20 MG TAB PO SCH (17:50)
[2018-06-27] MEDS: MINOXIDIL 2.5 MG TAB PO SCH (17:52)
--- NOTE | 2018-06-27 18:01 | PDGENHP ---
History and Physical History and Physical: CC: Asked by Dr. Hardy to assist in care of this patient who is now status post removal of lumbar hardware with new instrumentation and fusion; patient was having worsening pain and worsening bowel and bladder incontinence HISTORY: This patient has had several lumbar spine surgeries a previously with instrumentation and has hardware in place. She visit visited Dr. Smith of the since he 0 recently because of worsening lumbar and sciatic pain. She also has chronic urine and bowel incontinence and has been worsening with both of those in the last 2 months. Complicating this she has a history of collagenous colitis and has fluctuating consistency of her stool. Fairly recently she started having watery stools. She started a few weeks ago taking some budesonide and some [id number] anti diarrheal which change the stool to soft but this was not enough to prevent her stool incontinence for being worse. She has not taken these medicines in the past 10 days or so she thinks. She is now after surgery where she did well without complications. She is wide awake. She denies headache or neurologic symptoms nausea chest pain shortness of breath abdominal discomfort new neurologic symptoms or other symptoms of complication. She has severe pain in her back with muscle spasm and feels very anxious and tense related to that. She is eating some applesauce right now but say states she does not feel hungry. Regarding her collagenous colitis she says she has seen someone at [facility] but not for the last 3 years. She has taken intermittently budesonide or Amitiza based on what her symptoms are at the time but mostly is on no specific medicine for this. Yet she complains of constant ongoing bowel related symptoms in the way of either constipation or loose or watery stools. Never any bleeding or fevers, no abdominal pain with this and no systemic inflammatory symptoms ROS: A comprehensive 10 system review revealed no other significant findings PAST MEDICAL HISTORY: Multiple lumbar surgeries as above with instrumentation, chronic ongoing pain and continence issues Collagenous colitis with ongoing chronic symptoms Hypertension Hyponatremia Anxiety and depression Hypothyroid due to Graves with treatment of that Vaginal cancer of some type Appendectomy Hysterectomy Headaches FAMILY MEDICAL HISTORY: No concerning relevant illnesses in her family members SOCIAL HISTORY: lives with her No tobacco use MEDICATIONS: The patients list has been reconciled by our clinical pharmacist in the EMR. I have reviewed the list and ordered appropriate medicines. 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 It will be helpful if we can control her bowel function from standpoint of her colitis and loose stools. As she has new fusion will not be able to give her her budesonide. I will check with [facility] and see if they have consider tried any other therapies that have been useful. I wonder if some statin therapy might be useful to treat this. It is possible she will have more in the way of constipation due to pain medicines here but she is on chronic narcotics at home for chronic pain that have not really ever caused her but constipation problems * chronic hypertension well controlled * history of hyponatremia, will recheck her sodium tomorrow * currently no other acute medical issues but will follow her vital signs, follow for any signs of infection or other acute post operative complication I reviewed her case in detail today with Dr. Garo Hardy I have reviewed the patient's past medical records as part of this assessment, including past hospitalization records including physician notes laboratory dataAnd radiology reports
[2018-06-27] MEDS: LORazepam 1 MG TAB PO SCH (18:05)
--- NOTE | 2018-06-27 19:19 | GOP ---
DATE OF OPERATION: 06/27/2018 SURGEON: Garo Hardy MD STATION OPERATOR: Luis Lawson PA-C. ANESTHESIA: General endotracheal. PREOPERATIVE DIAGNOSIS: Critical T12-L1 spinal stenosis, with severe spinal cord compression and pro gressive myelopathy, status post multiple prior decompression and fusion surgeries in the lumbosacral spine. POSTOPERATIVE DIAGNOSIS: Critical T12-L1 spinal stenosis, with severe spinal cord compression and pr ogressive myelopathy, status post multiple prior decompression and fusion surgeries in the lumbosacra l spine. PROCEDURE PERFORMED: 1. Left-sided far lateral transpedicular decompression of the T12-L1 level, with T11-L2 posterior se gmental (pedicle screw and axle device) fixation and posterolateral fusion, with local autograft, bon e morphogenic protein, and morselized allograft. 2. T12-L1 posterior/transforaminal lumbar interbody fusion with 2 structural polyetheretherketone in terbody spacers, local autograft, and bone morphogenic protein. 3. Use of intraoperative microscopy, fluoroscopy, and computer volumetric stereotactic navigation, w ith intraoperative neurophysiologic testing. 4. Injection of intrathecal narcotic analgesics and subcutaneous and intramuscular local anesthesia for postoperative pain control. FINDINGS: ESTIMATED BLOOD LOSS: 250 cc. INDICATIONS: The patient is a 72-year-old woman with a history of multiple prior surgeries, includin g L1-S1 fusions and instrumentation, and removals and replacements, who presents now with progressive myelopathy and loss of bowel and bladder function, with critical spinal stenosis at T12-L1, adjacent to the prior fusions. DESCRIPTION OF PROCEDURE: After informed consent was obtained, the patient was taken to the operatin g room and placed in the prone position on a Brendon table. The thoracolumbosacral areas were preppe d and draped in a sterile fashion. After fluoroscopic localization of the correct levels, the subcut aneous and intramuscular tissues were infiltrated with local anesthesia. A midline linear incision w as then created over the T12-L2 spinous processes. This was carried down to the fascial layer, which was then incised using monopolar electrocautery and carried to the subperiosteal plane along the spi nous processes and lamina, and over the prior instrumentation. The prior instrumentation at L1-2 was carefully identified and removed in the standard fashion. Following this, the microscope was chay t in, and a left-sided far lateral transpedicular decompression was performed at the T12-L1 level, wi th complete unroofing of the facet joint and neural foramina at T12 and L1. A re-do posterior hemila minotomy was performed at the L1-2 level. The [employer] [employer] [facility] in [place] neuronavigational system was then brought in, and, using computer volumetric stereotactic navigation, pedicle screws were placed at T12 and L1 bila terally, and L2 on the right. The T12 screw-bone interface was not super solid, and I felt that it w as in the best interest of the patient to expose up to T11 and place screws there as well. This was carefully performed, and screws were placed at T11 bilaterally. All screws were tested neurophysiolo gically with monopolar electrostimulation and interpretation of the potentials by the surgeon from T1 1 through L2. Following this, biplanar fluoroscopy was also utilized to verify good positioning of t he screws. Short rods were then placed at the T12-L1 level under distraction, during which time a co mplete diskectomy was performed, with preparation of the endplates and placement of two 7 mm structur al PEEK interbody spacers, local autograft, and bone morphogenic protein for T12-L1 posterior/transfo raminal lumbar interbody fusion. The short rods were then removed, and a 100 mm nael was cut and size d to both sides and placed from T11 through L2. The locking caps were placed with a slight amount of compression across the T12-L1 level in order to facilitate bony union and to minimize the potential for posterior graft migration. Following re-verification of good positioning of the screws and inter body spacers, an axle device was placed at the T12-L1 level as well in order to avoid hardware failur e and kyphosis. The remaining lamina and facet joints were then extensively decorticated from T11 th rough L2, and the residual local autograft along with bone morphogenic protein and morselized allogra ft were placed out laterally from T11 through L2 for posterolateral fusion. Then, 200 mcg of Duramor ph along with 50 mcg of fentanyl were then injected intrathecally down at the L5-S1 level through a s claudio needle. The subcutaneous and intramuscular tissues were re-infiltrated with local anesthesia. A drain was placed. The wound was copiously irrigated with antibiotic irrigation and closed in a la yered fashion using interrupted Vicryl sutures, followed by Steri-Strips on the skin. COMPLICATIONS: None. DISPOSITION: The patient is currently in the process of being re-positioned for extubation. /[id number]/MODL
[2018-06-27] MEDS: GABAPENTIN 300 MG CAP PO SCH (20:15)
[2018-06-27] MEDS: SENNOSIDES/DOCUSATE SODIUM TAB PO SCH (20:16)
[2018-06-27] MEDS: FAMOTIDINE 20 MG TAB PO SCH (20:17)
[2018-06-27] MEDS: chlorproMAZINE HCL 25 MG TAB PO SCH (20:19)
[2018-06-27] MEDS: ceFAZolin 2 GM/DEXTROSE 100 ML IV SCH (20:24)
[2018-06-27] MEDS ORDERED: morphINE SR 15 MG TAB PO SCH (21:00)
[2018-06-27] MEDS: POLYETHYLENE GLYCOL 3350 17 GM PKT PO SCH (21:57)
[2018-06-27] MEDS ORDERED: CEFUROXIME 1,500 MG in NS 50 ML IV SCH (22:00)
[2018-06-28] MEDS: GABAPENTIN 300 MG CAP PO SCH ×3 (03:46→19:30)
[2018-06-28] MEDS: LISINOPRIL 20 MG TAB PO SCH ×2 (04:30→18:35)
[2018-06-28] MEDS: ceFAZolin 2 GM/DEXTROSE 100 ML IV SCH (04:37)
[2018-06-28] MEDS: MINOXIDIL 2.5 MG TAB PO SCH ×2 (04:39→18:34)
[2018-06-28] MEDS: LEVOTHYROXINE 112 MCG TAB PO SCH (04:40)
[2018-06-28] MEDS: LORazepam 1 MG TAB PO SCH ×2 (04:40→18:35)
[2018-06-28 05:27] LABS: PLATELET COUNT 169 10^3/uL (150-400)
[2018-06-28] MEDS: FAMOTIDINE 20 MG TAB PO SCH ×2 (09:03→20:24)
[2018-06-28] MEDS: ACETAMINOPHEN 500 MG TAB PO SCH ×3 (09:04→23:37)
[2018-06-28] MEDS: ESCITALOPRAM OXALATE 10 MG TAB PO SCH ×2 (09:04→20:23)
[2018-06-28] MEDS: SENNOSIDES/DOCUSATE SODIUM TAB PO SCH ×2 (09:04→20:31)
[2018-06-28] MEDS: POLYETHYLENE GLYCOL 3350 17 GM PKT PO SCH ×3 (09:06→19:30)
[2018-06-28] MEDS: ENOXAPARIN 40 MG/0.4 ML SYR SC SCH (09:06)
[2018-06-28] MEDS: ALLOPURINOL 300 MG TAB PO SCH (09:06)
[2018-06-28] MEDS: METOPROLOL SUCCINATE XR 50 MG TAB PO SCH ×2 (09:06→18:34)
[2018-06-28] MEDS: FLUTICASONE NASAL 120 SPRAYS/16 GM MDI EACHNARE SCH (09:07)
[2018-06-28] MEDS: oxyCODONE IR 5 MG TAB PO PRN ×3 (11:37→20:24)
--- NOTE | 2018-06-28 11:52 | NEUSURGPN ---
Date of Surgery: 06/27/18 Post Op Day: 1 Assessment/Plan: 72F s/p T11- L1 fusion, T12/L1 TLIF and preoperative loss of B/B control x2 days. No incontinences so far Pain control mobilize PT/OT JPx1 to full suction LSO when OOB, pt to bring from home dvt ppx: MAHOGANY's, SCD's, Lovenox to start today. post op films. dispo planning, home tomorrow if doing very well. giacomo Crain V Subjective: doihng well, no complaint of back pain. Not sure if any change in her b/b yet. no incontinence though. Objective: NAD AAOx4 EOMI, PEARLA VSS MAEx4, /= SILT Incision CDI, dressed Drain 165cc out since surgery. Urinary Catheter in Place: No Catheter Insertion Date: 06/27/18 - Physician Discussed Patient with : Antony Neurosurgery Physical Exam - Vitals, I&O, Labs I and O 06/27/18 06/28/18 06/29/18 05:59 05:59 05:59 Intake Total 2445 280 Output Total 2065 70 Balance 380 210 Weight 72.575 kg 72.575 kg Intake: Oral (ml) 720 IV Intake (ml) 1725 280 Output: Urine (ml) 1500 Catheter 1500 Estimated Blood Loss (ml) 400 GT Drain Output (ml) 165 70 #1 Back Brendon Reina 165 70 Other: Intake Quantity Yes Sufficient Number of Voids Catheter 1 Incontinence 1 Toilet 2 1 1 Number of Stools Toilet 1 Vital Signs Temp Pulse Resp BP Pulse Ox 37.3 C 87 18 123/79 H 93 06/28/18 11:32 06/28/18 11:32 06/28/18 11:32 06/28/18 11:32 06/28/18 11:32 Laboratory Results 06/28/18 04:20 06/28/18 04:20 ICD10 Worksheet Patient Problems: Problems Problem Status Onset Spinal stenosis Acute S/P lumbar spinal fusion Acute
--- NOTE | 2018-06-28 12:29 | HOSPPROG ---
Hospitalist Progress Note Assessment/Plan: 72y female with lumbar pain, consulting for medical issues. First encounter, chart reviewed. D/W Dr Barrios. ASSESSMENT: POD #1 lumbar surgery * postop stable * pain control Bowel and bladder incontinence *Hx of diarrhea with colitis and loose stools. *new fusion will not be able to give her her budesonide Chronic hypertension *well controlled History of hyponatremia *normal here Dispo *unclear, pain control and bowel evaluation Subjective: Having significant pain. Passing gas. No other issues. Objective: Vital Signs Temp Pulse Resp BP Pulse Ox 37.3 C 87 18 123/79 H 93 06/28/18 11:32 06/28/18 11:32 06/28/18 11:32 06/28/18 11:32 06/28/18 11:32 Laboratory Results 06/28/18 04:20 06/28/18 04:20 06/27/18 06/28/18 06/29/18 05:59 05:59 05:59 Intake Total 2445 280 Output Total 2065 70 Balance 380 210 PT 13.1 SEC (12.0-15.0) 06/26/18 19:02 INR 0.97 (0.83-1.16) 06/26/18 19:02 - Physical Exam Constitutional: no apparent distress, appears nourished, uncomfortable Eyes: PERRL, anicteric sclera, EOMI Ears, Nose, Mouth, Throat: moist mucous membranes, hearing normal, ears appear normal Cardiovascular: No JVD, No tachycardia, No edema Respiratory: no respiratory distress, no rales or rhonchi, reduced air movement Gastrointestinal: normoactive bowel sounds, No tenderness, No ascites Skin: warm, normal color, No mottled Musculoskeletal: pain with ROM, muscular tenderness, generalized weakness Neurologic: AAOx3 Psychiatric: interacting appropriately, not anxious, not encephalopathic, thought process linear ICD10 Worksheet Patient Problems: Problems Problem Status Onset Spinal stenosis Acute S/P lumbar spinal fusion Acute
[2018-06-28] MEDS: chlorproMAZINE HCL 25 MG TAB PO SCH (20:24)
[2018-06-29] MEDS: oxyCODONE IR 5 MG TAB PO PRN ×2 (03:39→09:34)
[2018-06-29] MEDS: LISINOPRIL 20 MG TAB PO SCH (05:06)
[2018-06-29] MEDS: MINOXIDIL 2.5 MG TAB PO SCH (05:06)
[2018-06-29] MEDS: LEVOTHYROXINE 112 MCG TAB PO SCH (05:06)
[2018-06-29] MEDS: LORazepam 1 MG TAB PO SCH (05:07)
[2018-06-29] MEDS: GABAPENTIN 300 MG CAP PO SCH (05:25)
[2018-06-29 09:09] VITALS: BP 134/71
[2018-06-29] MEDS: ESCITALOPRAM OXALATE 10 MG TAB PO SCH (09:35)
[2018-06-29] MEDS: ALLOPURINOL 300 MG TAB PO SCH (09:35)
[2018-06-29] MEDS: ACETAMINOPHEN 500 MG TAB PO SCH (09:35)
[2018-06-29] MEDS: FAMOTIDINE 20 MG TAB PO SCH (09:36)
[2018-06-29] MEDS: ENOXAPARIN 40 MG/0.4 ML SYR SC SCH (09:36)
[2018-06-29] MEDS: METOPROLOL SUCCINATE XR 50 MG TAB PO SCH (09:36)
[2018-06-29] MEDS: POLYETHYLENE GLYCOL 3350 17 GM PKT PO SCH (09:37)
[2018-06-29] MEDS: SENNOSIDES/DOCUSATE SODIUM TAB PO SCH (09:37)
--- NOTE | 2018-06-29 11:03 | HOSPPROG ---
Hospitalist Progress Note Assessment/Plan: 72y female with lumbar pain, consulting for medical issues. ASSESSMENT: POD #2 lumbar surgery * postop stable * pain control Bowel and bladder incontinence *Hx of diarrhea with colitis and loose stools. *new fusion will not be able to give her her budesonide Chronic hypertension *well controlled History of hyponatremia *normal here Dispo *today per neurosurgery Subjective: Feeling better. Still having loose stolls. Eager to go home. Objective: Vital Signs Temp Pulse Resp BP Pulse Ox 37.2 C 96 16 134/71 H 91 L 06/29/18 08:00 06/29/18 09:36 06/29/18 08:00 06/29/18 09:36 06/29/18 08:00 Laboratory Results 06/28/18 04:20 06/28/18 04:20 06/28/18 06/29/18 06/30/18 05:59 05:59 05:59 Intake Total 2445 1130 Output Total 2065 165 350 Balance 380 965 -350 PT 13.1 SEC (12.0-15.0) 06/26/18 19:02 INR 0.97 (0.83-1.16) 06/26/18 19:02 - Physical Exam Constitutional: appears nourished, chronically ill appearing Eyes: PERRL, anicteric sclera Ears, Nose, Mouth, Throat: moist mucous membranes, hearing normal Cardiovascular: No JVD, No edema Respiratory: no respiratory distress, reduced air movement Gastrointestinal: No tenderness, No ascites Skin: warm, normal color Musculoskeletal: pain with ROM, muscular tenderness, generalized weakness Neurologic: AAOx3 Psychiatric: interacting appropriately, not anxious, not encephalopathic ICD10 Worksheet Patient Problems: Problems Problem Status Onset S/P lumbar spinal fusion Acute Spinal stenosis Acute
[2018-06-29] MEDS: FLUTICASONE NASAL 120 SPRAYS/16 GM MDI EACHNARE SCH (11:30)
--- NOTE | 2018-06-29 11:55 | NEUSURGPN ---
Date of Surgery: 06/27/18 Post Op Day: 2 Assessment/Plan: 72F s/p T11- L1 fusion, T12/L1 TLIF and preoperative loss of B/B control x2 days. No incontinences so far Pain control PT/OT, seen and cleared for DC JPx1 to full suction, will send home with drain. LSO when OOB dvt ppx: MAHOGANY's, SCD's, Lovenox post op films. appreciate medicine input dispo planning, home later today after films. giacomo Crain V Subjective: doing well. Having some pain but managed. Wants to go home today Objective: NAD AAOx4 EOMI, PEARLA VSS MAEx4, 5/5= SILT Incision CDI, dressed Drain 165cc last 24. Catheter Insertion Date: 06/27/18 - Physician Discussed Patient with : Antony Neurosurgery Physical Exam - Vitals, I&O, Labs I and O 06/28/18 06/29/18 06/30/18 05:59 05:59 05:59 Intake Total 2445 1130 Output Total 2065 165 350 Balance 380 965 -350 Weight 72.575 kg Intake: Oral (ml) 720 850 IV Intake (ml) 1725 280 Output: Urine (ml) 1500 350 Catheter 1500 Incontinence 150 Toilet 200 Estimated Blood Loss (ml) 400 GT Drain Output (ml) 165 165 #1 Back Brendon Reina 165 165 Other: Intake Quantity Yes Sufficient Number of Voids Catheter 1 Incontinence 1 1 Toilet 1 1 1 Number of Stools Incontinence 1 Toilet 1 1 Vital Signs Temp Pulse Resp BP Pulse Ox 37.2 C 96 16 134/71 H 91 L 06/29/18 08:00 06/29/18 09:36 06/29/18 08:00 06/29/18 09:36 06/29/18 08:00 Laboratory Results 06/28/18 04:20 06/28/18 04:20 ICD10 Worksheet Patient Problems: Problems Problem Status Onset Spinal stenosis Acute S/P lumbar spinal fusion Acute
--- NOTE | 2018-06-29 13:56 | ASMTLACE ---
CAILIN Length of stay for Answers: 3 days current admission Acuity / Level of Answers: Yes Care: Did the patient have an inpatient admission? Comorbidities - select Answers: Opioid dependence all that apply / Chronic pain Other Notes: HTN; Hypothyroid # of Emergency department Answers: 1-2 visits in the last 6 months Social determinants Answers: Mental health diagnosis (anxiety, depression, pers onality disorders, etc.) Score: 15 Date Signed: 06/29/2018 01:55 PM Electronically Signed By:WHIT Kenyon
--- NOTE | 2018-06-29 14:00 | ASDISCHSUM ---
Discharge Information Plan Status:Home with No Needs Medically Cleared to Leave: Discharge Date:06/29/2018 01:10 PM CM D/C Disposition:Home, Routine, Self-Care ADT D/C Disposition:Home, Routine, Self-Care Projected Discharge Date:06/29/2018 01:10 PM Transportation at D/C:Family Discharge Delay Reason: Follow-Up Date:06/29/2018 01:10 PM Discharge Slot: Final Diagnosis: Placement Information Patient Contact Information Contact Name:[place] Relationship: Address:[address] [place] Alternate Phone: [facility]/Zip Code:[place] [address] Email: Financial Information Financial Class:Medicare Advantage Plans Primary Plan Desc:[facility] ADVANTAGE PLANS Primary Plan Number:[id number] Secondary Plan Desc: Secondary Plan Number: Assessment Information LACE LACE Length of stay for Answers: 3 days current admission Acuity / Level of Answers: Yes Care: Did the patient have an inpatient admission? Comorbidities - select Answers: Opioid dependence all that apply / Chronic pain Other Notes: HTN; Hypothyroid # of Emergency department Answers: 1-2 visits in the last 6 months Social determinants Answers: Mental health diagnosis (anxiety, depression, pers onality disorders, etc.) Score: 15 Date Signed: 06/29/2018 01:55 PM Electronically Signed By:WHIT Kenyon [facility] ANNA Progress Note CM Note CM Note Notes: ANNA reviewed chart for D/C planning. Pt is a 72 y/o female who has a hx of multiple lumbar surgeries. Over the past 2 years she has had increased urinary leakage. 2 days ago she lost control of both bowel and bladder. Legs are generally unsteady and do not hold her up confidently. Walks slowly. CT myelogram demonstrates critical spinal stenosis at the T12-L1 level. Surgery has been agreed to. Purpose is to prevent progression. She may not gain full control of bladder/bowel. OT ordered. is Tae, . CM will follow. D/C Plan: TBD Date Signed: 06/27/2018 09:29 AM Electronically Signed By:Yvonne Fierro Case Management Discharge Plan Note Case Management Discharge Discharge Order Complete? Answers: Yes Patient to Obtain Answers: via Family Medications Transportation Arranged Answers: Family/Friends Family Notified Answers: Yes Discharge Comments Notes: Pt is discharging home today with her and no CM needs. IM explained and signed by pt. Copy to pt and in chart. Date Signed: 06/29/2018 01:58 PM Electronically Signed By:WHIT Kenyon Intervention Information
[2018-08-06] MEDS ORDERED: ESTRADIOL ACETATE VG SCH (07:15)
== END 2018-06-29 13:10 | disposition home or self-care (01) | DRG 457 ==
LOC: F3N 21:06
PROVIDERS: ADMIT Neurological Surgery; ATTEND Neurological Surgery
PROC: 0QP004Z Removal of Internal Fixation Device from Lumbar Vertebra, Open Approach (ICD-10-PCS; principal; 2018-06-27 13:15)
PROC: 01NB0ZZ Release Lumbar Nerve, Open Approach (ICD-10-PCS; principal; 2018-06-27 13:15)
PROC: 0RG70AJ Fusion of 2 to 7 Thoracic Vertebral Joints with Interbody Fusion Device, Posterior Approach, Anterior Column, Open Approach (ICD-10-PCS; principal; 2018-06-27 13:15)
PROC: 3E0U0GB Introduction of Recombinant Bone Morphogenetic Protein into Joints, Open Approach (ICD-10-PCS; principal; 2018-06-27 13:15)
PROC: 0SG10AJ Fusion of 2 or more Lumbar Vertebral Joints with Interbody Fusion Device, Posterior Approach, Anterior Column, Open Approach (ICD-10-PCS; principal; 2018-06-27 13:15)
PROC: 01N80ZZ Release Thoracic Nerve, Open Approach (ICD-10-PCS; principal; 2018-06-27 13:15)
DX: M47.15 Other spondylosis with myelopathy, thoracolumbar region (principal); M47.16 Other spondylosis with myelopathy, lumbar region; M48.05 Spinal stenosis, thoracolumbar region; G95.20 Unspecified cord compression; I10 Essential (primary) hypertension; E03.9 Hypothyroidism, unspecified; Z98.1 Arthrodesis status; K52.831 Collagenous colitis; Z96.89 Presence of other specified functional implants; Z85.89 Personal history of malignant neoplasm of other organs and systems
CPT/HCPCS: 97116-GP; 97161-GP; 97165-GO; 97530-GP; C1713; C1762; G8978-GP-CJ; G8979-GP-CI; G8980-GP-CI; G8987-GO-CJ; G8988-GO-CI; J0171; J0360; J0690; J1100; J1170; J1650; J2250; J2270; J2274; J2370; J2405; J2704; J3010; J3360

== ENCOUNTER → 2018-06-26 | Outpatient (CLI) | payer OTHER ==
[~2018-06-26] MED LIST: IOPAMIDOL (ISOVUE-M 200) 20 ML VIAL ONE; LIDOCAINE 1% 300 MG/30 ML SDV ONE
[2018-06-26 09:00] LABS: INR 1.02 (0.83-1.16); PROTIME(PATIENT) 13.6 SEC (12.0-15.0)
== END ==
LOC: FIMAGING 08:13
PROVIDERS: ATTEND Physician Assistant Surgical
PROC: B02BYZZ Computerized Tomography (CT Scan) of Spinal Cord using Other Contrast (ICD-10-PCS; principal; 2018-06-26)
DX: M51.36 Other intervertebral disc degeneration, lumbar region (principal); M50.322 Other cervical disc degeneration at C5-C6 level; M48.05 Spinal stenosis, thoracolumbar region; M79.9 Soft tissue disorder, unspecified
CPT/HCPCS: 62305; 72126; 72129; 72132; 72270; Q9966

== ENCOUNTER → 2018-10-13 | Outpatient (CLI) | payer OTHER | LOC: FIMAGING 10:20 | PROVIDERS: ATTEND Physician Assistant Surgical | DX: Z98.1 Arthrodesis status (principal) ==

== ENCOUNTER → 2018-10-17 | Outpatient (CLI) | payer OTHER | LOC: FIMAGING 11:00 | PROVIDERS: ATTEND Physician Assistant Surgical | DX: M43.28 Fusion of spine, sacral and sacrococcygeal region (principal); M51.36 Other intervertebral disc degeneration, lumbar region ==

== ENCOUNTER → 2018-12-29 | Outpatient (CLI) | payer OTHER | LOC: FIMAGING 13:12 | PROVIDERS: ATTEND Physician Assistant Surgical | DX: Z98.1 Arthrodesis status (principal) ==